=== PATIENT | female | born 1985 | race Caucasian/White ===

== ENCOUNTER 2021-04-01 10:17 | Day surgery (SDC) | payer OTHER ==
[~2021-04-01] VITALS: Ht 157.5 cm; Wt 95.8 kg
[~2021-04-01 10:17] MED LIST: PRENATAL1 TA4 PO
[2021-04-01] MEDS ORDERED: MULTI-VITAMIN W1 TA1 PO (10:46)
[2021-04-01] MEDS ORDERED: VALTREX 50500 MG/TAB PO (10:46)
[2021-04-01 11:04] VITALS: BP 119/79; PULSE 71; TEMP 97.9
[2021-04-01] MEDS ORDERED: ULTRAM 50MG TAB50 MG PO (13:45)
[2021-04-01 14:30] VITALS: BP 120/73; PULSE 56; TEMP 97.8
--- NOTE | 2021-04-01 14:30 | NUR ---
PATIENT CAME BACK TO BAY #3 ON A CART, ESCORTED BY PACU STAFF. PATIENT IS VERY DROWSY BUT WILL ANSWER QUESTIONS. PATIENT DOES NOT WANT A DRINK AT THIS TIME. LAP SITES ARE CLOSED WITH SKIN GLUE X4 ACROSS TRANSVERSE ADB AND WITHOUT DISCHARGE OR REDNESS. PATIENT STATES PAIN 2/10. VITALS OBTAINED: 120/73. HR 56 100%. WILL CONTINUE TO MONITOR. CALL FAITH IS WITHIN REACH AND IS PRESENT.
[2021-04-01 14:45] VITALS: BP 112/73; PULSE 73
[2021-04-01 15:00] VITALS: BP 102/59; PULSE 80
[2021-04-01 15:15] VITALS: BP 126/76; PULSE 74
--- NOTE | 2021-04-01 16:00 | NUR ---
1445: TOOK REPORT FROM MARCOS PELAEZ. Patient reports doing well no complaint of nausea, minimal pain. Resting in bed with eyes closed. at bedside. 1500: Patient doing well, minimal pain, no complaint of nausea or vomiting. Requesting water and muffin. Tolerated both well with no nausea or vomiting. Minimal pain noted, patient states it is at a tolerable level. 1515: Patient resting well in bed with eyes closed. 1530: Patient stating she needs would like to use the restroom. Got up independently no complaint of pain or nausea, at bedside. 1540: Patient back in room and dressed. Stating pain is at a minimal level, no complaint of nausea. Went through discharge information with patient and her , verbalized understanding to education. Questions answered. Escorted patinet to patient entrance via wheelchair, patient's at side. pulled up vehicle. Patient left in the care of her , Franki.
== END 2021-04-01 15:45 | disposition home or self-care (01) ==
LOC: SDCO 10:17
DX: K80.10 Calculus of gallbladder with chronic cholecystitis without obstruction (principal); F17.210 Nicotine dependence, cigarettes, uncomplicated; Z80.41 Family history of malignant neoplasm of ovary; Z82.3 Family history of stroke; Z83.3 Family history of diabetes mellitus; Z80.49 Family history of malignant neoplasm of other genital organs
CPT/HCPCS: J0690; J1100; J1170; J1885; J2405; J2550; J2704; J3010; J7120